=== PATIENT | female | born 1970 | race Two or more races ===

== ENCOUNTER 2022-01-09 16:08 | Inpatient (IN) | payer OTHER ==
[~2022-01-09] VITALS: Ht 165.1 cm; Wt 127.0 kg
[2022-01-10] MEDS ORDERED: SYNTHROID150 MCG PO (09:46)
[2022-01-10] MEDS ORDERED: CAMILA0.35 MG PO (09:47)
[2022-01-15] MEDS ORDERED: ESTRADIOL42.5 GM (08:43)
== END 2022-01-17 10:41 | disposition home or self-care (01) | DRG 743 ==
LOC: OB/GYN 01-15 05:39 → O/R 01-15 05:39 → SURH 01-15 07:30 → OB/GYN 01-15 14:29
PROVIDERS: ADMIT Obstetrics & Gynecology; ATTEND Obstetrics & Gynecology
PROC: 0UT70ZZ Resection of Bilateral Fallopian Tubes, Open Approach (ICD-10-PCS; 2022-01-15)
PROC: 0UT20ZZ Resection of Bilateral Ovaries, Open Approach (ICD-10-PCS; 2022-01-15)
PROC: 0UT90ZZ Resection of Uterus, Open Approach (ICD-10-PCS; principal; 2022-01-15 08:15)
DX: D25.1 Intramural leiomyoma of uterus (principal); N72 Inflammatory disease of cervix uteri; Z20.822 Contact with and (suspected) exposure to COVID-19